=== PATIENT | male | born 1990 ===

== ENCOUNTER 2022-01-24 09:53 | Outpatient (CLI) | payer OTHER | END 2022-01-24 10:02 | disposition home or self-care (01) | LOC: RX STUDY 09:53 | PROVIDERS: ATTEND Surgery | DX: K94.09 Other complications of colostomy (principal); Z93.3 Colostomy status; K57.20 Diverticulitis of large intestine with perforation and abscess without bleeding ==

== ENCOUNTER 2022-03-25 10:00 | Inpatient (IN) | payer OTHER ==
[~2022-03-25] VITALS: Ht 162.6 cm; Wt 81.6 kg
[2022-04-03] MEDS ORDERED: OXYC1TAB9 PO (09:52)
[2022-04-03] MEDS ORDERED: DOXYCYCLINE MO100 MG PO (09:53)
[2022-04-03] MEDS ORDERED: MOXIFLOXACIN H400 MG PO (09:54)
[2022-04-03] MEDS ORDERED: INTESTINEX680 M1 PO (09:54)
[2022-04-03] MEDS ORDERED: PROTONIX40 MG PO (09:55)
== END 2022-04-03 10:39 | disposition home or self-care (01) | DRG 330 ==
LOC: O/R 03-27 06:10 → SURH 03-27 10:00
PROVIDERS: Surgery; ADMIT Surgery; ATTEND Surgery
PROC: 3E0F7SF Introduction of Other Gas into Respiratory Tract, Via Natural or Artificial Opening (ICD-10-PCS; 2022-03-27)
PROC: 0DQL4ZZ Repair Transverse Colon, Percutaneous Endoscopic Approach (ICD-10-PCS; principal; 2022-03-27 10:45)
PROC: 0WQF0ZZ Repair Abdominal Wall, Open Approach (ICD-10-PCS; 2022-03-27 10:45)
PROC: 8E0ZXY6 Isolation (ICD-10-PCS; 2022-04-02)
PROC: BW21YZZ Computerized Tomography (CT Scan) of Abdomen and Pelvis using Other Contrast (ICD-10-PCS; 2022-04-02)
DX: Z43.3 Encounter for attention to colostomy (principal); T81.41XA Infection following a procedure, superficial incisional surgical site, initial encounter; K57.20 Diverticulitis of large intestine with perforation and abscess without bleeding; K43.0 Incisional hernia with obstruction, without gangrene; K43.3 Parastomal hernia with obstruction, without gangrene; K66.0 Peritoneal adhesions (postprocedural) (postinfection); B95.62 Methicillin resistant Staphylococcus aureus infection as the cause of diseases classified elsewhere; D50.0 Iron deficiency anemia secondary to blood loss (chronic)

== ENCOUNTER 2022-04-30 01:32 | Inpatient (IN) | payer OTHER ==
[~2022-04-30] VITALS: Ht 160 cm; Wt 73.9 kg
[~2022-04-30 01:32] MED LIST: DOXYCYCLINE MO100 MG PO; INTESTINEX680 M1 PO; MOXIFLOXACIN H400 MG PO; OXYC1TAB9 PO; PROTONIX40 MG PO
[2022-05-05] MEDS ORDERED: BACTRIM DS TAB1 EACH PO (14:37)
[2022-05-05] MEDS ORDERED: ULTRACET PO (14:38)
== END 2022-05-05 21:40 | disposition home or self-care (01) | DRG 580 ==
LOC: ER 01:32 → SEC-K 08:09 → O/R 05-01 14:25 → SURG 05-01 17:44 → O/R 05-01 18:20 → SURH 05-01 20:50
PROVIDERS: ADMIT Surgery; ATTEND Surgery
PROC: 0W9F0ZZ Drainage of Abdominal Wall, Open Approach (ICD-10-PCS; principal; 2022-05-01 18:00)
DX: L03.311 Cellulitis of abdominal wall (principal); T81.49XA Infection following a procedure, other surgical site, initial encounter; K94.09 Other complications of colostomy; B95.62 Methicillin resistant Staphylococcus aureus infection as the cause of diseases classified elsewhere; Z20.822 Contact with and (suspected) exposure to COVID-19